=== PATIENT | male | born 1995 | race African-American/Black ===

== ENCOUNTER 2018-08-19 09:12 | Observation (INO) ==
[2018-08-19 10:32] LABS: Basophils # 0.1 10*3/uL (0.0-0.2); Basophils % 1.3 % (0.0-0.8); Eosinophils # 0.1 10*3/uL (0.0-0.87); Eosinophils % 1.2 % (0.00-10.9); Hematocrit 41.3 VOL% (42.0-52.0); Hemoglobin 13.4 GM/DL (14.0-18.0); Immature Granulocytes % 0.7 %; Immature Granulocytes Absolute 0.04 #; Lymphocytes # 2.2 10*3/uL (1.4-4.0); Lymphocytes % 35.7 % (21.2-54.2); Mean Corpuscular HGB Conc 32.4 GM/DL (32-36); Mean Corpuscular Hemoglobin 28 PG (27-34); Mean Corpuscular Volume 85.3 FL (87-102); Mean Platelet Volume 10.6 FL (9.6-12.0); Monocytes # 0.6 10*3/uL (0.11-0.8); Monocytes % 10.1 % (1.7-12.7); Neutrophils # 3.1 10*3/uL (1.4-7.4); Platelet Count 234 T/CUMM (130-400); Red Blood Count 4.84 MC/CUMM (3.8-5.5); Red Cell Distribution Width 15.3 % (9.3-17.3)
[2018-08-19 10:47] LABS: Alanine Aminotransferase 22 U/L (16-61); Albumin 3.9 G/DL (3.4-5.0); Alkaline Phosphatase 56 U/L (45-117); Aspartate Amino Transferase 23 U/L (0-37); Bilirubin,Total < 0.39 MG/DL (0.2-1.0); Blood Urea Nitrogen 9 MG/DL (7-18); Calcium 8.6 MG/DL (8.5-10.1); Glucose 95 MG/DL (74-106); Osmolality,Calculated 281.1 MOS/KG (273-304); Sodium 142 MMOL/L (136-145); Total Protein 6.8 G/DL (6.4-8.3)
[2018-08-19 12:33] LABS: Apearance,Urine CLEAR (Clear); Bilirubin,Urine Negative (Negative); Blood, Urine Negative (Negative); Glucose,Urine (UA) Negative (Negative); Ketones,Urine Negative (Negative); Mucus,Urine Occasional /LPF (Occasional); Nitrite,Urine Negative (Negative); Protein,Urine Negative; RBC,Urine 1 /HPF (0-4); Squamous Epithelial Cell,Urine Occasional /HPF (0-10); Urine Color Yellow (Yellow); Urine Specific Gravity 1.018 (1.001-1.035); WBC,Urine 1 /HPF (0-6)
[2018-08-19] MEDS ORDERED: INFLUENZA VIRUS VACCINE 0.5 ML SYRINGE IM ONE (15:00)
[2018-08-19] MEDS ORDERED: ONDANSETRON 4 MG/2 ML VIAL IV PRN (15:39)
[2018-08-19] MEDS ORDERED: ACETAMINOPHEN 325 MG TABLET PO PRN (15:39)
[2018-08-19] MEDS ORDERED: MORPHINE 4 MG/1 ML VIAL IV PRN (15:39)
[2018-08-19] MEDS ORDERED: LACTATED RINGERS 1,000 ML IV SCH (15:39)
[2018-08-19] MEDS: PIPERACILLIN/TAZOBACTAM 3,375 MG in SODIUM CHLORIDE 0.9% 100 ML IV SCH (16:51)
[2018-08-20] MEDS: PIPERACILLIN/TAZOBACTAM 3,375 MG in SODIUM CHLORIDE 0.9% 100 ML IV SCH (00:26)
[2018-08-20] MEDS ORDERED: ENOXAPARIN 40 MG/0.4 ML SYRINGE SUBCUT SCH (06:00)
[2018-08-20 06:10] LABS: Basophils # 0.1 10*3/uL (0.0-0.2); Basophils % 0.8 % (0.0-0.8); Eosinophils # 0.1 10*3/uL (0.0-0.87); Eosinophils % 1.2 % (0.00-10.9); Hematocrit 41.7 VOL% (42.0-52.0); Hemoglobin 13.3 GM/DL (14.0-18.0); Immature Granulocytes % 0.6 %; Immature Granulocytes Absolute 0.04 #; Lymphocytes # 1.7 10*3/uL (1.4-4.0); Lymphocytes % 25.6 % (21.2-54.2); Mean Corpuscular HGB Conc 31.9 GM/DL (32-36); Mean Corpuscular Hemoglobin 27 PG (27-34); Mean Corpuscular Volume 85.1 FL (87-102); Mean Platelet Volume 10.9 FL (9.6-12.0); Monocytes # 0.5 10*3/uL (0.11-0.8); Monocytes % 8.2 % (1.7-12.7); Neutrophils # 4.1 10*3/uL (1.4-7.4); Neutrophils % 63.6 % (38.7-73.9); Platelet Count 213 T/CUMM (130-400); Red Cell Distribution Width 15.5 % (9.3-17.3); White Blood Count 6.5 T/CUMM (4-12)
[2018-08-20 06:39] LABS: Albumin 3.6 G/DL (3.4-5.0); Bilirubin,Total 0.6 MG/DL (0.2-1.0); Calcium 8.3 MG/DL (8.5-10.1); Osmolality,Calculated 279.1 MOS/KG (273-304); Potassium 3.6 MMOL/L (3.5-5.1); Total Protein 6.6 G/DL (6.4-8.3)
[2018-08-20 07:36] VITALS: BP 127/57
[2018-08-20] MEDS ORDERED: PANTOPRAZOLE 40 MG TABLET PO SCH (09:00)
== END 2018-08-20 08:55 | disposition home or self-care (01) ==
LOC: N.ED 09:12 → N.EDINP 09:12 → N.3E 14:31
PROVIDERS: ADMIT Surgery; ATTEND Surgery